=== PATIENT | female | born 1995 | race Caucasian/White ===

== ENCOUNTER 2018-04-20 15:24 | Emergency (ER) | payer SELFPAY ==
[~2018-04-20] VITALS: Ht 172.7 cm; Wt 68.2 kg
[2018-04-20 15:36] VITALS: BP 124/82; PULSE 91; TEMP 98.7
[2018-04-20] MEDS ORDERED: ALLEGRA 180MG180 MG PO (16:51)
[2018-04-20] MEDS ORDERED: FLONASEALLERGY NS (16:51)
== END 2018-04-20 18:01 | disposition home or self-care (01) ==
LOC: COL.ER 15:24
DX: S61.511A Laceration without foreign body of right wrist, initial encounter (principal); Z79.51 Long term (current) use of inhaled steroids; Z23 Encounter for immunization; W26.8XXA Contact with other sharp object(s), not elsewhere classified, initial encounter; Y92.89 Other specified places as the place of occurrence of the external cause